=== PATIENT | female | born 1945 | race Hispanic/Latino ===

== ENCOUNTER → 2018-03-28 | Outpatient (CLI) | payer MEDICARE | END | disposition home or self-care (01) | LOC: OIH 12:17 | PROVIDERS: ATTEND Family Medicine | DX: M25.551 Pain in right hip (principal); M25.511 Pain in right shoulder; I10 Essential (primary) hypertension; E78.5 Hyperlipidemia, unspecified | CPT/HCPCS: 73030; 73502 ==

== ENCOUNTER → 2020-02-27 | Outpatient (CLI) | payer OTHER | END | disposition home or self-care (01) | LOC: OIH 09:57 | PROVIDERS: ATTEND Family Medicine | DX: M47.816 Spondylosis without myelopathy or radiculopathy, lumbar region (principal); M48.061 Spinal stenosis, lumbar region without neurogenic claudication; M16.0 Bilateral primary osteoarthritis of hip | CPT/HCPCS: 72100; 73521 ==

== ENCOUNTER → 2020-05-19 | Outpatient (CLI) | payer OTHER | END | disposition home or self-care (01) | LOC: RAH 10:15 | PROVIDERS: ATTEND Family Medicine | DX: Z12.31 Encounter for screening mammogram for malignant neoplasm of breast (principal); N64.89 Other specified disorders of breast | CPT/HCPCS: 77067 ==

== ENCOUNTER → 2021-07-08 | Outpatient (CLI) | payer OTHER | END | disposition home or self-care (01) | LOC: RAH 09:37 | PROVIDERS: ATTEND Family Medicine | DX: Z12.31 Encounter for screening mammogram for malignant neoplasm of breast (principal) | CPT/HCPCS: 77067 ==

== ENCOUNTER 2022-07-14 17:15 | Emergency (ER) | payer MEDICARE, OTHER ==
[~2022-07-14] VITALS: Ht 152.4 cm; Wt 74.8 kg
[2022-07-14 18:37] VITALS: BP 138/74
[2022-07-14] MEDS ORDERED: MOLN200C PO (19:30)
[2022-07-14] MEDS ORDERED: BENZ-39 PO (19:30)
== END 2022-07-14 19:40 | disposition home or self-care (01) ==
LOC: EDH 17:15
DX: U07.1 COVID-19 (principal); I11.9 Hypertensive heart disease without heart failure; B34.9 Viral infection, unspecified; E11.9 Type 2 diabetes mellitus without complications; E78.00 Pure hypercholesterolemia, unspecified; Z98.890 Other specified postprocedural states; Z90.710 Acquired absence of both cervix and uterus
CPT/HCPCS: 99285; 71045; 87635; 87804 ×2; 93005; C9803

== ENCOUNTER 2022-09-22 00:55 | Emergency (ER) | payer MEDICARE ==
[~2022-09-22] VITALS: Ht 152.4 cm; Wt 66.7 kg
[~2022-09-22 00:55] MED LIST: ACET-2123 PO; BENZ-39 PO; DULO30CA52 PO; ERGO400C PO; MELO-108 PO; METF-526 PO; PANT40TA54 PO; SIMV-43 PO
[2022-09-22] MEDS ORDERED: HYD25 PO (01:26)
[2022-09-22] MEDS ORDERED: LORA10TA7 PO (01:26)
[2022-09-22] MEDS ORDERED: HYDROXYZINE 25 MG TABLET PO ONE (01:30)
[2022-09-22] MEDS ORDERED: LORATADINE 10 MG TABLET PO SCH (01:30)
[2022-09-22] MEDS ORDERED: SOLU-MEDROL 125MG VIAL IVP ONE (01:30)
[2022-09-22] MEDS ORDERED: MECLIZINE HCL 25 MG TABLET PO ONE (01:30)
[2022-09-22 01:42] LABS: CREATININE 1.4 mg/dL (0.5-1.5)
[2022-09-22 02:32] VITALS: BP 126/62
== END 2022-09-22 02:33 | disposition home or self-care (01) ==
LOC: EDH 00:55
DX: T78.40XA Allergy, unspecified, initial encounter (principal); L29.9 Pruritus, unspecified; I10 Essential (primary) hypertension; E78.00 Pure hypercholesterolemia, unspecified; E11.9 Type 2 diabetes mellitus without complications; Z90.710 Acquired absence of both cervix and uterus; Z88.0 Allergy status to penicillin; Z79.899 Other long term (current) drug therapy
CPT/HCPCS: 99283; 96374; 80048; 36415; J2930

== ENCOUNTER 2024-04-11 10:32 | Emergency (ER) | payer OTHER ==
[~2024-04-11] VITALS: Ht 152.4 cm; Wt 66.2 kg
[~2024-04-11 10:32] MED LIST changes: -BENZ-39 PO; +GLIP10TA9 PO; +IBUP-2070 PO; +ROSU10TA72 PO; -SIMV-43 PO
[2024-04-11 12:06] LABS: BASOPHILS # (AUTO) 0.09 K/uL (0.00-0.20); BASOPHILS % (AUTO) 0.9 % (0.0-5.0); EOSINOPHILS # (AUTO) 1.35 K/uL (0.00-0.70); EOSINOPHILS % (AUTO) 12.9 % (0.0-8.0); HEMATOCRIT 36.6 % (36-48); IMMATURE GRANULOCYTE ABSOLUTE 0.04 K/uL (0-1); LYMPHOCYTES # (AUTO) 2.7 K/uL (1.0-4.8); LYMPHOCYTES % (AUTO) 25.4 % (21.0-51.0); MEAN CORPUSCULAR HEMOGLOBIN 28.4 pg (27.0-33.0); MEAN CORPUSCULAR HGB CONC 32.5 g/dL (32.0-36.0); MEAN CORPUSCULAR VOLUME 87.4 fL (79-99); MONOCYTES # (AUTO) 0.9 K/uL (0.1-1.0); MONOCYTES % (AUTO) 8.2 % (3.0-13.0); NEUTROPHILS # (AUTO) 5.5 K/uL (1.8-7.7); NEUTROPHILS % (AUTO) 52.2 % (40.0-77.0); PLATELET COUNT (AUTO) 327 K/uL (130-400); RED BLOOD CELL COUNT(AUTO) 4.19 MIL/uL (4.00-5.50); RED CELL DISTRIBUTION WIDTH 13.2 % (11.0-15.5); WHITE BLOOD COUNT (AUTO) 10.5 K/uL (4.8-10.8)
[2024-04-11 12:14] LABS: CREATININE 1.1 mg/dL (0.5-1.0); POTASSIUM 4.3 mmol/L (3.5-5.1)
[2024-04-11] MEDS: acetaMINOPHEN 500 MG TABLET PO ONE (12:28)
[2024-04-11 13:06] LABS: APPEARANCE,URINE CLEAR (CLEAR); BILIRUBIN,URINE NEGATIVE (NEGATIVE); COLOR,URINE COLORLESS (YELLOW); GLUCOSE, URINE (UA) NEGATIVE (NEGATIVE); KETONES,URINE NEGATIVE (NEGATIVE); LEUKOCYTE ESTERASE ,URINE NEGATIVE Leu/uL (NEGATIVE); NITRATE,URINE NEGATIVE (NEGATIVE); OCCULT BLOOD,URINE NEGATIVE (NEGATIVE); PROTEIN,URINE 10 mg/dL (NEGATIVE); UROBILINOGEN,URINE 0.2 mg/dL (0.2-1.0)
[2024-04-11 13:07] LABS: ADD UA MICROSCOPIC YES
[2024-04-11 13:15] LABS: BACTERIA,URINE RARE /HPF (None Seen); SQUAMOUS EPITHELIAL CELL,UR RARE /HPF (0-2)
[2024-04-11] MEDS ORDERED: ALBUHFA IH (14:47)
[2024-04-11] MEDS ORDERED: GUAI10LI14 PO (14:47)
[2024-04-11 15:27] VITALS: BP 188/69; PULSE 63; RESP 18; TEMP 97.3; O2SAT 98
== END 2024-04-11 15:51 | disposition home or self-care (01) ==
LOC: EDH 10:32
DX: S16.1XXA Strain of muscle, fascia and tendon at neck level, initial encounter (principal); S20.212A Contusion of left front wall of thorax, initial encounter; S00.03XA Contusion of scalp, initial encounter; J42 Unspecified chronic bronchitis; M19.90 Unspecified osteoarthritis, unspecified site; W01.0XXA Fall on same level from slipping, tripping and stumbling without subsequent striking against object, initial encounter; Y93.89 Activity, other specified; Y92.89 Other specified places as the place of occurrence of the external cause; Y99.8 Other external cause status
CPT/HCPCS: 36415; 70450; 71101; 72125; 80048; 81001; 82948; 85025; 93005

== ENCOUNTER → 2024-06-08 | Outpatient (CLI) | payer OTHER ==
[~2024-06-08] MED LIST changes: +ALBUHFA IH; +GLIP10TA16 PO; -GLIP10TA9 PO; +GUAI10LI14 PO
[2024-06-08 15:34] LABS: BASOPHILS # (AUTO) 0.09 K/uL (0.00-0.20); BASOPHILS % (AUTO) 0.8 % (0.0-5.0); EOSINOPHILS % (AUTO) 19.7 % (0.0-8.0); HEMATOCRIT 33.9 % (36-48); IMMATURE GRANULOCYTE ABSOLUTE 0.04 K/uL (0-1); LYMPHOCYTES # (AUTO) 2.8 K/uL (1.0-4.8); MEAN CORPUSCULAR HEMOGLOBIN 28.7 pg (27.0-33.0); MEAN CORPUSCULAR HGB CONC 31.9 g/dL (32.0-36.0); MEAN CORPUSCULAR VOLUME 90.2 fL (79-99); MONOCYTES # (AUTO) 0.8 K/uL (0.1-1.0); MONOCYTES % (AUTO) 6.9 % (3.0-13.0); NEUTROPHILS # (AUTO) 5.3 K/uL (1.8-7.7); NEUTROPHILS % (AUTO) 47.2 % (40.0-77.0); PLATELET COUNT (AUTO) 291 K/uL (130-400); RED BLOOD CELL COUNT(AUTO) 3.76 MIL/uL (4.00-5.50); RED CELL DISTRIBUTION WIDTH 12.7 % (11.0-15.5); WHITE BLOOD COUNT (AUTO) 11.2 K/uL (4.8-10.8)
[2024-06-08 15:55] LABS: ALBUMIN 3.6 g/dL (3.5-5.0); BILIRUBIN,TOTAL 0.3 mg/dL (0.2-1.0); CREATININE 1.1 mg/dL (0.5-1.0); POTASSIUM 4.2 mmol/L (3.5-5.1)
[2024-06-08 17:32] LABS: BASOPHILS % (MANUAL) 1 % (0-2); EOSINOPHILS % (MANUAL) 12 % (1-6); LYMPHOCYTES % (MANUAL) 29 % (22-44); MONOCYTES % (MANUAL) 4 % (2-9); SEGMENTED NEUTROPHILS % 54 % (40-70); TOTAL CELLS COUNTED 100
[2024-06-08 17:33] LABS: MAN.DIFF COMMENT-IMPRESSION MANUAL DIFFERENTIAL
[2024-06-08 17:34] LABS: PLATELET MORPHOLOGY COMMENT ADEQUATE; WBC MORPHOLOGY CONSISTENT W/DIFF
== END | disposition home or self-care (01) ==
LOC: LAB 14:51
PROVIDERS: ATTEND Internal Medicine Cardiovascular Disease
DX: I21.4 Non-ST elevation (NSTEMI) myocardial infarction (principal); I25.10 Atherosclerotic heart disease of native coronary artery without angina pectoris
CPT/HCPCS: 36415; 80053; 84484; 85025

== ENCOUNTER → 2024-06-11 | Outpatient (CLI) | payer OTHER ==
--- NOTE | 2024-06-11 12:34 | HMCIMG ---
Exam: NONCONTRAST CT BRAIN REASON: AMS. COMPARISON: None. TECHNIQUE: Images are obtained from vertex to the skull base. The exam was performed without IV contrast. FINDINGS: There is encephalomalacia in the right posterior parietal lobe extending into the medial occipital lobe consistent with remote previous infarct. There are generous ventricles and sulci. There is decreased attenuation in the deep central white matter. These findings are consistent with atrophy. There are no acute appearing focal parenchymal lesions. There is no evidence of mass, intracranial hemorrhage or acute stroke. Posterior fossa and brainstem structures appear unremarkable. There are no abnormal fluid collections. Extra cranial soft tissues appear unremarkable as well. IMPRESSION: 1. Atrophy, no acute finding. 2. Right posterior parietal and medial occipital encephalomalacia consistent with remote previous stroke. CT was performed with one or more following dose reduction techniques: automated exposure control, adjustment of the mA and kv according to patient's size, or use of a iterative reconstruction technique.
== END | disposition home or self-care (01) ==
LOC: RAH 10:13
PROVIDERS: ATTEND Internal Medicine Cardiovascular Disease
DX: G93.89 Other specified disorders of brain (principal); G31.89 Other specified degenerative diseases of nervous system; I25.110 Atherosclerotic heart disease of native coronary artery with unstable angina pectoris; R41.82 Altered mental status, unspecified
CPT/HCPCS: 70450

== ENCOUNTER → 2024-07-09 | Outpatient (CLI) | payer OTHER ==
[~2024-07-09] MED LIST changes: -GUAI10LI14 PO; +GUAIFDM PO
--- NOTE | 2024-07-09 16:36 | HMCIMG ---
Exam Type: CHEST 2VWS Clinical Information: Hypertensive heart and chronic kidney disease without heart failure, with s Comparison: None Findings: There is cardiomegaly and there is status post median sternotomy. The lungs are clear of infiltrates. Impression: Clear lungs.
== END | disposition home or self-care (01) ==
LOC: RAH 15:49
PROVIDERS: ATTEND Internal Medicine
DX: I13.10 Hypertensive heart and chronic kidney disease without heart failure, with stage 1 through stage 4 chronic kidney disease, or unspecified chronic kidney disease (principal); J44.9 Chronic obstructive pulmonary disease, unspecified; N18.9 Chronic kidney disease, unspecified
CPT/HCPCS: 71046

== ENCOUNTER 2024-07-13 00:49 | Emergency (ER) | payer OTHER ==
[~2024-07-13] VITALS: Ht 152.4 cm; Wt 66.2 kg
[2024-07-13] MEDS: ketOROlac 15MG/ML VIAL (15MG/ML) IM ONE (01:19)
[2024-07-13] MEDS: GABAPENTIN 300 MG CAPSULE PO SCH (01:19)
[2024-07-13] MEDS: acetaMINOPHEN 500 MG TABLET PO ONE (01:20)
[2024-07-13] MEDS: LIDOCAINE 5% TOPICAL PATCH TP ONE (01:21)
[2024-07-13 02:02] VITALS: BP 186/60; PULSE 75; RESP 18; TEMP 97.8; O2SAT 99
[2024-07-13] MEDS: metoCLOPRAmide 10 MG/2 ML VIAL IVP ONE (02:13)
[2024-07-13] MEDS: methoCARBamol 500 MG TABLET PO SCH (02:13)
[2024-07-13] MEDS ORDERED: GABA-529 PO (02:38)
[2024-07-13] MEDS ORDERED: LIDOP TP (02:38)
[2024-07-13] MEDS ORDERED: METH-662 PO (02:39)
--- NOTE | 2024-07-13 02:40 | ERN ---
ED Note History of Present Illness Stated Complaint: NECK PAIN Chief Complaint: Neck Pain Time Seen by MD: 01:02 Allergies: Coded Allergies: Penicillins (Unverified Allergy, Unknown, 07/14/22) sulfamethoxazole (Unverified Allergy, Unknown, 06/25/23) trimethoprim (Unverified Allergy, Unknown, 06/25/23) Home Meds Active Scripts Guaifenesin/Dextromethorphan (Guaifenesin-Dm 200-20 mg/10 ml) 100 Mg-10 Mg/5 Ml Liquid, 10 ML PO Q6HPRN PRN for COUGH, #200 ML Prov:GIANNA LIN [employer] SPECIALIST 04/11/24 Albuterol Sulfate (Ventolin Hfa/Proventil Hfa/Proair Hfa) 90 Mcg Puff, 2 PUFF IH Q4H for WHEEZING, #1 INHALER 0 Refills Prov:GIANNA LIN [employer] SPECIALIST 04/11/24 Reported Medications Ibuprofen (Ibuprofen) 600 Mg Tablet, 600 MG PO Q6H PRN for PAIN, TAB 01/15/24 Rosuvastatin Calcium (Rosuvastatin Calcium) 10 Mg Tablet, 10 MG PO DAILY, TAB 01/15/24 Glipizide (Glipizide) 10 Mg Tablet, 10 MG PO DAILY, TAB 01/15/24 Acetaminophen (Acetaminophen Extra Strength) 500 Mg Tablet, 500 MG PO AD, TAB 08/10/22 Cholecalciferol (Vitamin D3) (Vitamin D3) 10 Mcg Capsule, 10 MCG PO DAILY, CAP 08/10/22 Duloxetine HCl (Duloxetine HCl) 30 Mg Capsule.dr, 30 MG PO DAILY, CAP 08/10/22 Metformin HCl (Metformin HCl ER) 500 Mg Tab.er.24, 500 MG PO AD 08/10/22 Meloxicam (Meloxicam) 15 Mg Tablet, 15 MG PO DAILY, TAB 08/10/22 Pantoprazole Sodium (Pantoprazole Sodium) 40 Mg Tablet.dr, 40 MG PO DAILY, TAB 08/10/22 Past Medical History Dictation 78-year-old female with past medical history of high blood pressure, high cholesterol, diabetes, CAD (s/p cardiac stents) presents with neck pain that is suddenly onset several days ago when she woke up. Patient states the pain has been from the base of her neck to her shoulder and has been constant in nature. Patient denies fevers, chest pain, nausea, vomiting diaphoresis, syncope, presyncope, productive cough, chest pain Past Medical History: CAD, Diabetes-Type II, High Cholesterol, Hypertension Surgical History: CABG Surgical History Other: CAROTID Social History: Negative, Lives with family History: Not Applicable Review of System Dictation See HPI Initial Vital Sign VS Vital Signs Date Time Temp Pulse Resp B/P (MAP) Pulse Ox O2 Delivery O2 Flow Rate FiO2 07/13/24 00:50 98.4 67 18 125/89 97 Room Air 0 07/13/24 02:02 21 Physical Exam Dictation Chronically ill-appearing, acutely weak appearing, 5/5 strength in extremities x4, in no x4, tenderness to palpation to left paracervical region, left shoulder, left scapular region, limited range of motion secondary to pain, no erythema, no induration, no vesicular rash, lungs clear to auscultation, symmetrical breath sounds ED Course ED Course Orders Procedure Category Date Status Time Ketorolac PHA 07/13/24 Complete Tromethamine 15mg/Ml 01:30 Acetaminophen 500mg PHA 07/13/24 Complete Tab (Tylenol 500mg T 01:30 Gabapentin 300 Mg Cap PHA 07/13/24 In Process (Neurontin 300 Mg 01:30 Lidocaine (Lidoderm PHA 07/13/24 Complete Patch 5%) 01:30 Methocarbamol PHA 07/13/24 In Process (Methocarbamol) 02:30 Metoclopramide 10 PHA 07/13/24 Complete Mg/2 Ml Vial (Reglan 1 02:30 Current Medications Medications (Trade) Dose Ordered Sig/Agnes Route PRN Reason Start Time Stop Time Status Last Admin Dose Admin Acetaminophen (TYLenol 500MG TAB) 1,000 mg ONCE ONCE PO 07/13/24 01:30 07/13/24 01:31 DC 07/13/24 01:20 Gabapentin (NEURontin 300 MG CAP) 300 mg ONCE PO 07/13/24 01:30 08/12/24 01:29 07/13/24 01:19 Ketorolac Tromethamine (toRADol) 15 mg ONCE ONCE IM 07/13/24 01:30 07/13/24 01:31 DC 07/13/24 01:19 Lidocaine (Lidoderm Patch 5%) 2 patch ONCE ONCE TP 07/13/24 01:30 07/13/24 01:31 DC 07/13/24 01:21 Methocarbamol (methoCARBamol) 500 mg ONCE PO 07/13/24 02:30 08/12/24 02:29 07/13/24 02:13 Metoclopramide HCl (regLAN 10MG IV) 10 mg ONCE ONCE IVP 07/13/24 02:30 07/13/24 02:31 DC 07/13/24 02:13 Vital Signs Date Time Temp Pulse Resp B/P (MAP) Pulse Ox O2 Delivery O2 Flow Rate FiO2 07/13/24 02:02 97.9 75 18 186/60 99 Room Air* 0 21 07/13/24 00:50 98.4 67 18 125/89 97 Room Air 0 Medical Decision Making MDM ddx: STEMI versus NSTEMI versus cervical spinal stenosis versus musculoskeletal injury versus DVT versus cellulitis versus shingles Patient has normal visual inspection. Low clinical suspicion for cellulitis or shingles. Patient's C-spine is not tender midline. No indication for CT C-spi ne. Patient's headache seems to be consistent with tension headache. Patient has tenderness to palpation at base of neck and shoulders. Patient has no other symptoms. Low clinical suspicion for cardiac etiology. We will attempt pain control reassess Upon re-evaluation, patient's pain has improved. Discussed ED workup with patient. Recommend close primary care follow up. We will provide neurosurgery referral. Return precautions given. Invited and answered all questions prior to discharge. Patient patient's who is at bedside agreeable to plan. DX & DISP Disposition: Discharge Departure Impression: Primary Impression: Acute neck pain Additional Impression: Acute neck sprain Condition: Stable Scripts Methocarbamol (Robaxin) 750 Mg Tab 500 MG PO QIDP for 7 Days, #30 TAB Prov: THOMAS HOOK DO 07/13/24 Lidocaine (Lidoderm Patch 5%) 5 % Patch 1 PATCH TP DAILY for 30 Days, #30 PATCH 0 Refills may wear up to 12 hours Prov: THOMAS HOOK DO 07/13/24 Gabapentin (Gabapentin) 100 Mg Capsule 300 MG PO TID for 7 Days, #21 CAP Prov: THOMAS HOOK DO 07/13/24 Additional Instructions: Please return to emergency department immediately if worsening symptoms arise, if you develop weakness in your arms or legs, change in mental status, sudden loss of consciousness, nausea, vomiting. Please follow up primary care physician next available appointment. Referrals: ZEINAB PATEL MD (PCP) Time of Disposition: 02:40 THOMAS HOOK DO Jul 13, 2024 02:40
== END 2024-07-13 02:57 | disposition home or self-care (01) ==
LOC: EDH 00:49
DX: S13.9XXA Sprain of joints and ligaments of unspecified parts of neck, initial encounter (principal); E11.9 Type 2 diabetes mellitus without complications; E78.00 Pure hypercholesterolemia, unspecified; I10 Essential (primary) hypertension; I25.10 Atherosclerotic heart disease of native coronary artery without angina pectoris; Z79.1 Long term (current) use of non-steroidal anti-inflammatories (NSAID); Z79.84 Long term (current) use of oral hypoglycemic drugs; Z79.899 Other long term (current) drug therapy; Z88.0 Allergy status to penicillin; Z88.1 Allergy status to other antibiotic agents; Z88.2 Allergy status to sulfonamides; Z95.1 Presence of aortocoronary bypass graft; Z95.5 Presence of coronary angioplasty implant and graft; X58.XXXA Exposure to other specified factors, initial encounter; Y93.89 Activity, other specified; Y92.89 Other specified places as the place of occurrence of the external cause; Y99.8 Other external cause status
CPT/HCPCS: 99284; 96374; 96372; J2765; J1885

== ENCOUNTER → 2024-08-03 | Outpatient (CLI) | payer OTHER ==
[~2024-08-03] MED LIST changes: +GABA-529 PO; +IOHEXOL 350 MG/ML 100ML INFUS..BTL IV ONE; +LIDOP TP; +METH-662 PO; +metoPROLOL tartRATE 1 MG/ML 5ML VIAL IV ONE
--- NOTE | 2024-08-03 11:51 | HMCIMG ---
CT CARDIAC ANGIO W/CONT. CCTA REASON: Atherosclerotic heart disease of [place] coronary artery with unstable angin COMPARISON: None TECHNIQUE: Images are obtained through the heart in the axial plane before and during bolus IV contrast infusion, 100 cc Omnipaque 350. 2-D and 3-D multiplanar reconstruction images were then performed. The injection had to be repeated once due to motion artifact on the first sequence, total contrast volume was 200 cc. FINDINGS: This dictation is for the noncardiac findings only. Cardiac and coronary artery findings are reported separately. Visualized portions of the lungs are clear. There is normal-appearing pulmonary interstitium. There is no hilar or mediastinal lymphadenopathy. Chest wall structures appear unremarkable. IMPRESSION: 1. Unremarkable noncardiac portions of CT cardiac angiography.
== END | disposition home or self-care (01) ==
LOC: RAH 10:32
PROVIDERS: ATTEND Internal Medicine Cardiovascular Disease
DX: I25.110 Atherosclerotic heart disease of native coronary artery with unstable angina pectoris (principal)
CPT/HCPCS: 75574; J3490; Q9967

== ENCOUNTER → 2024-12-07 | Outpatient (CLI) | payer OTHER ==
[~2024-12-07] MED LIST changes: -IOHEXOL 350 MG/ML 100ML INFUS..BTL IV ONE; -metoPROLOL tartRATE 1 MG/ML 5ML VIAL IV ONE
--- NOTE | 2024-12-07 14:38 | HMCIMG ---
CT HEAD/BRAIN W/O CONTRAST HISTORY: [place] COMPARISON: None TECHNIQUE: Multiple sequential axial images of the head were obtained from the base of the skull through vertex. Patient was not given contrast through intravenous route. FINDINGS: The ventricles and extraventricular CSF spaces are dilated consistent with cerebral atrophy. Nonspecific white matter changes seen. There are bilateral basal ganglia calcifications. Old right occipital lobe infarct is seen. There is no midline shift, mass effect or herniation. No acute intracranial bleed is seen. Visualized portion of the paranasal sinuses are grossly within normal limits. IMPRESSION: 1. No acute intracranial bleed is seen. 2. Atrophy with white matter changes. Old right occipital lobe infarct. CT was performed with one or more following dose reduction techniques: automated exposure control, adjustment of the mA and kv according to patient's size, or use of a iterative reconstruction technique.
== END | disposition home or self-care (01) ==
LOC: RAH 13:27
PROVIDERS: ATTEND Internal Medicine
DX: G31.9 Degenerative disease of nervous system, unspecified (principal); R90.82 White matter disease, unspecified; G93.89 Other specified disorders of brain; R48.1 Agnosia
CPT/HCPCS: 70450